=== PATIENT | male | born 1980 | race Caucasian/White ===

== ENCOUNTER 2024-07-20 19:24 | Emergency (ER) | payer OTHER, SELFPAY ==
[2024-07-20 19:26] VITALS: BP 173/98
[2024-07-20 20:07] VITALS: BMI 26.2
[2024-07-20 20:13] VITALS: BP 148/90
[2024-07-20] MEDS: TORADOL 15 MG IV (20:14)
[2024-07-20 20:17] VITALS: BP 148/90
[2024-07-20 20:22] LABS: % Basophils 0.6 % (0-2); % Eosinophils 0.9 % (0-6); % Immature Granulocytes 0.4 % (0-0.5); % Lymphocytes 14.9 % (20.5-51.1); % Monocytes 7.1 % (1.7-9.3); % Neutrophils 76.1 % (42.2-75.2); Absolute Basophils 0.1 10^3/uL (0-0.2); Absolute Eosinophils 0.1 10^3/uL (0-0.7); Absolute Lymphocytes 1.6 10^3/uL (1.2-3.4); Absolute Monocytes 0.8 10^3/uL (0.1-0.6); Absolute Neutrophils 8.3 10^3/uL (1.4-6.5); Hematocrit 39.4 % (39.0-52.0); Hemoglobin 13.9 g/dL (13.0-18.0); Mean Corp Hgb Conc. 35.3 g/dL (33.0-37.0); Mean Corpuscular Hgb 28.1 pg (27.0-31.0); Mean Corpuscular Volume 79.8 fL (80.0-94.0); Mean Platelet Volume 11.3 fL (7.4-10.4); Nucleated Red Blood Cells % 0 % (-); Platelet Count 181 10^3/uL (130-400); Red Blood Cell Count 4.94 10^6/uL (4.70-6.10); Red Cell Dist. Width 12.5 % (11.5-14.5); White Blood Cell Count 10.8 10^3/uL (4.8-10.8)
--- NOTE | 2024-07-20 20:24 | ED.GENMED ---
History of Present Illness
General
Chief Complaint: Ear Problem
Source: patient
Time Seen by Provider: 07/20/24 19:54
History of Present Illness
History of Present Illness:
44yoM with a history of recurrent ear infections presenting for evaluation of right ear pain. Symptoms began yesterday. He was seen at urgent care yesterday and was started on amoxicillin for an ear infection. He has had 3 doses thus far. His ear
pain was worsening this morning and he is now having swelling and drainage from the ear canal. He also reports decreased hearing from the ear. He also reports pain to the right side of the face and jaw with tingling. He had leftover Ciprodex drops
which he instilled. He went back to urgent care this evening. Blood work was done which showed a normal white count. He was sent to the ED for evaluation. Patient denies any fevers or chills. He denies any ear trauma or water exposure.
Phy Exam
General Physical Exam
General Presentation: well appearing and no apparent distress
General Skin: warm and dry
General Habitus: normal
General Mental: alert
ENT Exam
ENT Exam: other (Significant edema noted to the R ear canal. Unable to insert otoscope or visualize TM. No erythema/swelling noted to pinna. There is mild tenderness to the R mastoid process without erythema or edema. )
Cardiovascular Exam
Cardiovascular Exam: regular rate/rhythm
Pulmonary Exam
Pulmonary Exam: no respiratory distress
[place] Coma Scale
Eye Opening: Spontaneous
Verbal Response: Oriented
Motor Response: Obeys Commands
GCS Total Score: 15
Skin Exam
Skin Exam: normal color and warm/dry
Psychiatric Exam
Psychiatric Exam: normal mood/affect
Course
Orders/Labs/Results
Orders:
Orders
07/20/24 20:03
Ketorolac [Toradol] 15 mg IV NOW STA
07/20/24 20:07
Basic Metabolic Panel Urgent
Complete Blood Count/With Diff Urgent
07/20/24 20:15
CT Temporal-iac W/ Iv Contrast Urgent
Comment:
Reason For Exam: R ear pain and swelling, r/o mastoiditis
07/20/24 20:29
Ciprofloxacin HCl [Cipro] 4 dropperett OTIC NOW STA
07/20/24 21:16
Ciprofloxacin HCl [Cipro] 2 dropperett OTIC NOW STA
Abnormal Lab Results
07/20/24
20:07
MCV 79.8 L fL
(80.0-94.0)
MPV 11.3 H fL
(7.4-10.4)
Absolute Neuts (auto) 8.3 H 10^3/uL
(1.4-6.5)
Absolute Monos (auto) 0.8 H 10^3/uL
(0.1-0.6)
Neutrophils % 76.1 H %
(42.2-75.2)
Lymphocytes % 14.9 L %
(20.5-51.1)
07/20/24 20:07
07/20/24 20:07
Vital Signs
Initial and Last Documented VS:
Initial Vital Signs
Temp Pulse Resp BP Pulse Ox
98.4 F 95 18 173/98 95
07/20/24 19:26 07/20/24 19:26 07/20/24 19:26 07/20/24 19:26 07/20/24 19:26
Last Documented Vital Signs
Temp Pulse Resp BP Pulse Ox
98.4 F 93 16 148/90 99
07/20/24 19:26 07/20/24 20:17 07/20/24 20:17 07/20/24 20:17 07/20/24 20:17
MDM/Problems Addressed
Differential Diagnosis Includes:
44yoM here with R ear pain x 1 day. Started on amoxil yesterday. Now with worsening swelling and drainage. Hx of recurrent ear infections. No f/c. Patient is hypertensive with otherwise normal vitals. He is acutely nontoxic. There is a
significant amount of edema noted to the right ear canal and otoscope unable to be inserted. TM not visualized. No erythema or swelling to the pinna. Mild tenderness to the mastoid process without swelling or erythema. Differential diagnosis
includes but is not limited to: Otitis externa, less likely mastoiditis, less likely malignant otitis externa
Initial ED plan: Check CBC, BMP, and CT temporal bones with contrast. IV Toradol for symptoms.
*Critical Care Note
Total Time (30-74mins, 75-104mins- exclusive of procedures): Not Applicable
Update Note
Update Note:
Labs unremarkable including normal white count. CT shows 'trace thickening right middle ear. Trace fluid few right mastoid air cells. Thickening right external auditory canal. Correlate for possible otitis. No bony erosion.' Case was discussed
with ENT, Dr. Wilson. Imaging findings are not concerning per ENT physician. Dr. Wilson recommending ear wick with topical antibiotics. May also add p.o. Cipro or Levaquin if there is associated cellulitis. Recommendations discussed with patient
and he is feeling better after receiving Toradol. Ear wick was inserted. Prescriptions provided for Ciprodex gtts and PO Levaquin. Patient advised to follow-up with ENT next week. Strict ED return precautions discussed including fevers. He was
discharged in stable condition.
ED Attending Note
-
Portions of this chart may have been created with voice recognition software.� Occasional wrong word or��sound alike� substitutions may have occurred due to the inherent limitations of voice recognition software.
Discharge Plan
Departure
Patient Disposition: Home (Routine Discharge)
Date of Disposition: 07/20/24
Time of Disposition: 21:16
Patient with high blood pressure during this ER visit?: Yes
Discharge Problem:
Acute otitis externa of right ear
Instructions: Outer Ear Infection ED
Prescriptions:
New
ciprofloxacin-dexamethasone 0.3-0.1 % drops,suspension
4 drp otic (ear) BID 7 Days Qty: 7.5 0RF
levofloxacin 750 mg tablet
750 mg PO DAILY 7 Days Qty: 7 0RF
Referrals:
Eleno Wilson MD [Active] -
Kyree Sandhu MD [Family Provider] -
Activity Restrictions/Additional Instructions:
Take antibiotics and apply antibiotic drops as prescribed. Take ibuprofen 600mg every 6 hours as needed for pain.
The ear wick should come out on its own and should be removed in 3-4 days.
Please follow-up with ENT next week. Return to the ER with any worsening symptoms or fevers.
Interventions
Interventions:
*Risk Screen - Suicide Last Done: 07/20/24 20:07
*General Assessment Last Done: 07/20/24 20:07
*Neglect/Abuse Screening Last Done: 07/20/24 20:07
ED- Fall Risk Assessment Last Done: 07/20/24 20:25
*ED COVID-19 Vaccine History Last Done: 07/20/24 20:16
Discharge Date and Time
Print Language: SYRIAC
[2024-07-20 20:46] LABS: Blood Urea Nitrogen 16 mg/dl (9-20); Calcium 9.2 mg/dl (8.4-10.2); Carbon Dioxide 29 mmol/L (22-30); Chloride 100 mmol/L (98-107); Estimated Creatinine Clearance 115 ml/min; Glucose 93 mg/dl (70-99); Potassium 3.9 mmol/L (3.5-5.1); Sodium 139 mmol/L (135-145); eGFR > 60.00
[2024-07-20] MEDS: CIPRO 2 DROPPERETT OTIC (21:17)
== END 2024-07-20 21:36 | disposition home or self-care (01) ==
LOC: EMR 19:24
PROVIDERS: Physician Assistant; EMERGENCY PHYSICIAN Emergency Medicine; FAMILY PHYSICIAN Internal Medicine
DX: H60.501 Unspecified acute noninfective otitis externa, right ear (principal); R03.0 Elevated blood-pressure reading, without diagnosis of hypertension
CPT/HCPCS: 99285; 96374; 70481; 80048; 85025; Q9967